=== PATIENT | male | born 1945 | race Caucasian/White ===

== ENCOUNTER 2017-03-16 16:26 | Emergency (ER) | payer OTHER ==
--- NOTE | 2017-03-16 17:34 | UC ---
Hip/Pelvis Pain - HPI Summary HPI Summary: 71 year old male presents with complains of right hip/leg pain after falling. - History Of Current Complaint Chief Complaint: UCLowerExtremity Stated Complaint: S/P FALL RIGHT HIP/LEG INJURY WC Time Seen by Provider: 03/16/17 17:33 Hx Obtained From: Patient Onset/Duration: Sudden Onset Severity Initially: Moderate Severity Currently: Moderate Pain Scale Used: 0-10 Numeric - 7 Character Of Pain: Sharp Aggravating Factor(s): Movement, Weight Bearing Alleviating Factor(s): Rest Associated Signs And Symptoms: Positive: Weakness - Allergies/Home Medications Allergies/Adverse Reactions: Allergies Allergy/AdvReac Type Severity Reaction Status Date / Time No Known Allergies Allergy Verified 03/16/17 17:34 Home Medications: Home Medications Lansoprazole [Prevacid] 30 mg PO DAILY 03/16/17 [History Confirmed 03/16/17] Naproxen Sodium [Naproxen Sodium 220 mg] 660 mg PO DAILY PRN 03/16/17 [History Confirmed 03/16/17] PMH/Surg Hx/FS Hx/Imm Hx Previously Healthy: Yes - Surgical History Surgical History: Yes Surgery Procedure, Year, and Place: 2006--PROSTATECTOMY - Social History Alcohol Use: Occasionally Substance Use Type: None Smoking Status (MU): Never Smoked Tobacco Review of Systems Constitutional: Negative Skin: Negative Eyes: Negative ENT: Negative Respiratory: Negative Cardiovascular: Negative Gastrointestinal: Negative Genitourinary: Negative Motor: Negative Neurovascular: Negative Musculoskeletal: Other: - right hip/leg pain Neurological: Negative Psychological: Negative All Other Systems Reviewed And Are Negative: Yes Physical Exam Triage Information Reviewed: Yes Vital Signs: Initial Vital Signs Temp 36.9 C 03/16/17 17:21 Pulse 75 03/16/17 17:21 Resp 20 03/16/17 17:21 BP 141/89 03/16/17 17:21 Pulse Ox 99 03/16/17 17:21 Vital Signs Reviewed: Yes Eye Exam: Normal ENT Exam: Normal Dental Exam: Normal Neck exam: Normal Neck: Positive: 1 Respiratory Exam: Normal Cardiovascular Exam: Normal Abdominal Exam: Normal Musculoskeletal: Positive: Other: - right hip/leg pain Neurological Exam: Normal Psychological Exam: Normal Skin Exam: Normal Hip Injury Course/Dx - Differential Dx/Diagnosis Provider Diagnoses: right hip/leg pain/strain Discharge - Discharge Plan Condition: Stable Disposition: HOME Prescriptions: Ibuprofen TAB* [Motrin TAB* 800 MG] 800 mg PO Q6H #30 tab Methocarbamol TAB* [Robaxin 500 MG TAB*] 500 mg PO TID PRN #30 tab PRN Reason: Spasms Patient Education Materials: Hip Pain (ED) Referrals: Zachary Stevenson MD [Primary Care Provider] - Kiko Hernández MD [Medical Doctor] - Lukas Miller [Physical Therapist] -
--- NOTE | 2017-03-16 18:12 | RAD ---
HISTORY: Right hip pain, fall COMPARISONS: None VIEWS: 3, Frontal view of the pelvis with frontal and frog-leg views of the right hip FINDINGS: BONE DENSITY: Normal. BONES: There is no displaced fracture. 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 ALIGNMENT: There is no dislocation. SOFT TISSUES: Unremarkable. OTHER FINDINGS: Surgical clips are noted in the pelvis. IMPRESSION: OSTEOARTHRITIS. NO RADIOGRAPHIC EVIDENCE FOR HIP FRACTURE. X-RAYS MAY BE NEGATIVE WITH NONDISPLACED HIP FRACTURE, IF THERE IS PERSISTENT CLINICAL CONCERN, RECOMMEND CONSIDERATION OF MRI. IN THE SETTING OF CONTRAINDICATION TO MRI OR LIMITATION IN EMERGENT ACCESS TO MRI, CT WOULD BE SUGGESTED.
== END 2017-03-16 18:23 | disposition home or self-care (01) ==
LOC: UCCORT 16:26
DX: S76.011A Strain of muscle, fascia and tendon of right hip, initial encounter (principal); W19.XXXA Unspecified fall, initial encounter; Y93.9 Activity, unspecified; Y92.9 Unspecified place or not applicable; Y99.0 Civilian activity done for income or pay; R53.1 Weakness; Z90.79 Acquired absence of other genital organ(s)
CPT/HCPCS: 99202; G0463